=== PATIENT | male | born 1945 | race Caucasian/White ===

== ENCOUNTER 2017-04-09 14:07 | Emergency (ER) | payer OTHER ==
[~2017-04-09] VITALS: Ht 172.7 cm; Wt 73.0 kg
[~2017-04-09 14:07] MED LIST: AUGMENTIN 875875 MG PO; CIPROFLOXACIN
[2017-04-09 14:28] LABS: ABSOLUTE EOSINOPHILS 0.1 thou/uL (0.0-0.7); ABSOLUTE LYMPHOCYTES 1.6 thou/uL (0.8-5.3); ABSOLUTE MONOCYTES 0.6 thou/uL (0.0-1.2); ABSOLUTE NEUTROPHILS 5.1 thou/uL (1.6-8.1); BASOPHILS 0.3 %; EOSINOPHILS 0.9 %; HEMATOCRIT 43.9 % (42.0-52.0); HEMOGLOBIN 14.9 gm/dL (14.0-18.0); LYMPHOCYTES 21.7 %; MCH 33.4 pg (26.0-34.0); MCHC 33.9 g/dL (28.0-37.0); MCV 98.6 fL (80.0-100.0); MONOCYTES 7.8 %; MPV 9.2 fl. (7.2-11.1); NUCLEATED RBCS 0 /100WBC; PLATELET COUNT* 157 thou/uL (150-400); POLYS 69.3 %; RBC 4.46 mil/uL (4.50-6.00); RDW-CV 14.3 % (10.5-14.5); WBC 7.4 thou/uL (4.0-11.0)
[2017-04-09] MEDS ORDERED: LIPITOR 20 MG T20 M1 PO (14:34)
[2017-04-09] MEDS ORDERED: ASPIR 8181 MG PO (14:35)
[2017-04-09 14:39] LABS: APTT 25.8 Seconds (25.0-31.3); INR 1.1; PROTIME 10.4 Seconds (9.20-11.50)
[2017-04-09 14:41] LABS: ANION GAP 4 mmol/L (7-16); BUN 19 mg/dL (7-18); CALCIUM 8.6 mg/dL (8.5-10.1); CHLORIDE 106 mmol/L (98-107); CO2 31 mmol/L (21-32); GLUCOSE 107 mg/dL (70-99); POTASSIUM 4.2 mmol/L (3.5-5.1); SODIUM 141 mmol/L (136-145)
[2017-04-09 14:48] LABS: ALBUMIN 3.4 g/dL (3.4-5.0); ALKALINE PHOSPHATASE 98 U/L (46-116); LIPASE 170 U/L (73-393); MAGNESIUM 1.9 mg/dL (1.8-2.4); NT-PRO BRAIN NAT PEPTIDE 39 pg/mL (<300); SGOT 28 U/L (15-37); SGPT 62 U/L (30-65); TOTAL BILIRUBIN 0.6 mg/dL (<0.1-1.0); TOTAL PROTEIN 7.4 g/dL (6.4-8.2); TROPONIN-I LEVEL <0.06 ng/mL (<0.06)
--- NOTE | 2017-04-09 15:02 | EKG ---
[place] [address] ELECTROCARDIOGRAM REPORT Name: LIUJEAN PIERRE Room: [facility]#: [id number] Admission: 04/09/17 Attend Phys: Discharge: Date of : 41 Report #: [id number] THIS REPORT FOR: //name// 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: Vinnie DOMINGUEZ : 1945 Requested By: Wang Haskins Order Number: [id number] MD: Warner Cannon Measurements Intervals [place] Rate: 52 P: 80 GA: 174 QRS: 69 QRSD: 106 T: 59 QT: 461 QTc: 429 Interpretive Statements Sinus bradycardia septal q waves noted Low voltage, extremity leads No previous ECG available for comparison Electronically Signed On 04-09-2017 15:02:32 MACHINE RIGGER by Warner Cannon [email or web address] <ELECTRONICALLY SIGNED> By: Warner Cannon MD, [facility] 04/09/17 1502 1411 1411 Warner Cannon MD, FACC /EPI
[2017-04-09 15:47] VITALS: BP 133/66
== END 2017-04-09 15:49 | disposition left against medical advice (07) ==
LOC: M.ERS 14:07
PROVIDERS: Emergency Medicine Emergency Medical Services
DX: I24.9 Acute ischemic heart disease, unspecified (principal); F17.200 Nicotine dependence, unspecified, uncomplicated